=== PATIENT | male | born 1960 | race Caucasian/White ===

== ENCOUNTER 2017-03-21 05:54 | Emergency (ER) | payer BC, OTHER ==
[~2017-03-21] VITALS: Ht 175.3 cm; Wt 96.3 kg
[~2017-03-21 05:54] MED LIST: MULT-190 PO
[2017-03-21 05:58] VITALS: TEMP 36.8; Ht 175.3 cm; Wt 96.3 kg
[2017-03-21] MEDS ORDERED: PROPARACAINE HCL 0.5% OP SOLN 15 ML BTL ONE (06:22)
--- NOTE | 2017-03-21 06:30 | EMERGENCY ROOM VISIT NOTE ---
History Report prepared by Sabino: Diane Pederson Under the Supervision of: Dr. Betty Coelho D.O. First contact with patient: 06:07 Chief Complaint: OTHER COMPLAINT Stated Complaint: SWOLLEN EYES, EAR/HEAD PAIN History of Present Illness The patient is a 56 year old male who presents to the Emergency Room with complaints of constant eye swelling beginning this morning. The patient states that a few days ago he felt like he had an eyebrow hair hair that was out of place but nothing was wrong. He reports that the next day he noticed a sensitive spot behind his ear that was not from any cause that he could find. Over the next days he has noticed more sensitive spots on the top of his head and yesterday developed a red line on the front of his forehead. The patient complains of sensitive spots on his head, a line on his forehead that feels like a large zit, and a swollen eye. He denies any ear pain and history of getting a shingles shot. Source of History: patient Onset: this morning Position: eye (right) Quality: other (swelling) Timing: constant Note: The patient complains of sensitive spots on his head and a zit-feeling line on his forehead. He denies any ear pain. Review of Systems See HPI for pertinent positives & negatives. A total of 10 systems reviewed and were otherwise negative. Past Medical & Surgical Medical Problems: (1) No Known Active Medical Problems Family History No pertinent family history stated. Social History Smoking Status: Never Smoker Marital Status: Housing Status: lives with significant other Occupation Status: employed Current/Historical Medications Scheduled Valacyclovir Hcl (Valtrex), 1 TAB PO TID Scheduled PRN Oxycodone/Acetaminophen 5MG/325MG (Percocet 5MG/325MG), 1-2 TABLETS PO Q4H PRN for Pain Allergies Coded Allergies: Penicillins (Verified Allergy, Unknown, hives, 03/21/17) Physical Exam Vital Signs Date Time Temp Pulse Resp B/P Pulse Ox O2 Delivery O2 Flow Rate FiO2 03/21/17 06:55 86 18 128/88 94 Room Air 03/21/17 06:06 98 03/21/17 05:58 36.8 91 18 135/73 95 Room Air Physical Exam HEENT: Head - Vesicular lesions above the left eye extending up to the middle of the scalp. Pupils are equal, round, and reactive to light. Extraocular eye muscles are intact, and sclera are anicteric. Ear - Left TM was normal. No signs of herpetic lesions. Nose - moist nasal mucosa without discharge. There were no lesions to the tip of the nose. Mouth - moist buccal mucosa. Oropharynx is nonerythematous and there is no tonsillar exudate or edema noted. Neck: Supple; no JVD, nuchal rigidity, cervical lymphadenopathy, or auscultated bruits. Heart: Regular rate and rhythm. There is a normal S1 and S2 with no murmurs, clicks, or gallops appreciated. Lungs: Clear to auscultation bilaterally with no wheezes, rales, or rhonchi. Abdomen: Soft, completely nontender, nondistended, with good bowel sounds. There are no palpable pulsatile masses or hepatosplenomegaly. There is no guarding, rigidity, or rebound noted. Extremities: No evidence of cyanosis, clubbing, or edema. There are easily palpable peripheral pulses. Skin: warm and dry with good turgor and no rashes. Slit Lamp Exam: Negative. See procedure note. Medical Decision & Procedures Medications Administered Medications (Trade) Dose Ordered Sig/Blair Route Start Time Stop Time Status Last Admin Dose Admin Proparacaine HCl (Alcaine 0.5% Oph Soln) 225 drops STK-MED ONCE .ROUTE 03/21/17 06:22 03/21/17 06:23 DC 03/21/17 06:18 225 DROPS Valacyclovir HCl (Valtrex Tab) 1,000 mg NOW ONCE PO 03/21/17 06:45 03/21/17 06:46 DC 03/21/17 06:48 1,000 MG Oxycodone/ Acetaminophen (Percocet 5/ 325MG Home Pack) 1 homepack UD ONCE PO 03/21/17 06:45 03/21/17 06:46 DC 03/21/17 06:47 1 HOMEPACK Dexamethasone (Decadron 0.1% Op Soln) 1 drops UD STAT OPL 03/21/17 06:37 03/21/17 06:41 DC 03/21/17 07:03 1 DROPS Procedure Slit Lamp Examination Indication: Rule out Herpes Ophthalmicus The left eye was prepped with topical proparacaine. Slit lamp examination was performed in the standard fashion. Cornea appeared clear. Anterior chamber quiet. Scleral injection minimal. No discharge present. Fluorescein examination performed and revealed no dendritic lesions. No foreign bodies noted. Negative Sophie sign. The patient tolerated the procedure well without complication. 0637: Dexamethasone 1 drop OPL. 0645: Oxycodone/Acetaminophen 1 homepack PO, Valtrex Tab 1000mg PO. ED Course 0607: Past medical records reviewed. The patient was evaluated in room B2. A complete history and physical exam was performed. 0632: A slit lamp examination was performed. 0637: Dexamethasone 1 drop OPL. 0645: Oxycodone/Acetaminophen 1 homepack PO, Valtrex Tab 1000mg PO. 0648: I reevaluated and updated the patient. 0659: Upon reevaluation, the patient is doing well. I discussed treatment plan with him. He verbalized agreement of the treatment plan. The patient was discharged home. Medical Decision The patient is a 56 year old male who presents to the ED with eye swelling. Differential diagnosis includes orbital cellulitis, periorbital cellulitis, zoster ophthalmicus, herpes zoster. This is a 56-year-old male patient presents to the emergency department with lesions to the left side of his head and above the left eye. His examination is consistent with herpes zoster. The patient was started on Valtrex for the next 7 days. He was given Percocet to use for pain. A thorough eye exam was performed. There were no dendritic lesions noted on exam, however I was concerned about the possibility of herpes ophthalmicus and we'll start the patient on dexamethasone eyedrops to the left eye. He was warned that if he developed any symptoms to the left eye, he should return to the emergency department immediately. Impression Primary Impression: Herpes zoster virus infection of face and ear nerves Scribe Attestation The scribe's documentation has been prepared under my direction and personally reviewed by me in its entirety. I confirm that the note above accurately reflects all work, treatment, procedures, and medical decision making performed by me. Departure Information Dispostion Home / Self-Care Prescriptions Oxycodone/Acetaminophen 5MG/325MG (PERCOCET 5MG/325MG) Tab 1-2 TABLETS PO Q4H Y for Pain, #20 TAB Prov: Betty Coelho D.O. 03/21/17 Valacyclovir Hcl (VALTREX) 1 Gm Tab 1 TAB PO TID for 7 Days, #21 TAB Prov: Betty Coelho D.O. 03/21/17 Referrals Erik Arevalo M.D. (PCP) Forms HOME CARE DOCUMENTATION FORM, IMPORTANT VISIT INFORMATION, WORK / SCHOOL INSTRUCTIONS Patient Instructions [facility], Shingles Herpes Zoster Additional Instructions Rest. Valtrex - 1 tab. every 8 hours for a week Percocet - 1 -2 tabs. every 6 hours for pain Steroid eye drops - 1 drop to the left eye every hour while awake. You must return to the ER immediately if you feel any eye involvement Avoid immunocomprimised individuals
[2017-03-21] MEDS ORDERED: DEXAMETHASONE 0.1% OP SOLN 5 ML BTL OPL STA (06:37)
[2017-03-21] MEDS ORDERED: PERCOCET HOME PACK PO ONE (06:45)
[2017-03-21 06:55] VITALS: BP 128/88; PULSE 86; O2SAT 94
[2017-03-21] MEDS ORDERED: OXYC-57 PO (06:57)
[2017-03-21] MEDS ORDERED: VALA1TAB31 PO (06:57)
== END 2017-03-21 07:08 | disposition home or self-care (01) ==
LOC: C.EDB 05:55
DX: B02.9 Zoster without complications (principal)

== ENCOUNTER → 2017-11-23 | Outpatient (CLI) | payer OTHER ==
--- NOTE | 2017-11-23 12:08 | DIAGNOSTIC IMAGING REPORT ---
CHEST 2 VIEWS ROUTINE CLINICAL HISTORY: R05 [id number] COMPARISON STUDY: No previous studies for comparison. FINDINGS: The bones soft tissues and hemidiaphragms are normal. The cardiomediastinal silhouette is normal. The lungs are clear. The pulmonary vasculature is normal. IMPRESSION: Negative chest. The above report was generated using voice recognition software. It may contain grammatical, syntax or spelling errors. Electronically signed by: Noe Gutierrez M.D. 11/23/2017 12:06 PM Dictated Date/Time: 11/23/2017 12:06 PM
[2017-11-23 13:26] LABS: ALT/SGPT 45 U/L (12-78); BLOOD UREA NITROGEN 10 mg/dl (7-18); BUN/CREATININE RATIO 14.6 (10-20); CALCIUM 8.5 mg/dl (8.5-10.1); CARBON DIOXIDE 28 mmol/L (21-32); CHLORIDE 106 mmol/L (98-107); CHOLESTEROL 117 mg/dl (0-200); CREATININE 0.71 mg/dl (0.60-1.40); GLUCOSE 80 mg/dl (70-99); POTASSIUM 3.7 mmol/L (3.5-5.1); SODIUM 140 mmol/L (136-145); TRIGLYCERIDES 52 mg/dl (0-150); VERY LOW DENSITY LIPOPROT CALC 10 mg/dl
[2017-11-23 13:37] LABS: ALB/GLOB RATIO 1.1 (0.9-2); ALKALINE PHOSPHATASE 68 U/L (45-117); AST/SGOT 19 U/L (15-37); CHOLESTEROL/HDL RATIO 2.8; HDL CHOLESTEROL 42 mg/dl; LDL CHOLESTEROL CALCULATED 65 mg/dl
== END | disposition home or self-care (01) ==
LOC: C.RADBC 11:08
PROVIDERS: ATTEND Physician Assistant Medical
DX: Z00.00 Encounter for general adult medical examination without abnormal findings (principal); R68.89 Other general symptoms and signs; R05 Cough

== ENCOUNTER → 2017-12-20 | Outpatient (CLI) | payer OTHER | END | disposition home or self-care (01) | LOC: C.CPL 07:20 | PROVIDERS: ATTEND Surgery | DX: Z01.810 Encounter for preprocedural cardiovascular examination (principal); K42.9 Umbilical hernia without obstruction or gangrene ==

== ENCOUNTER → 2017-12-24 | Day surgery (SDC) | payer OTHER ==
[2017-12-20 11:07] VITALS: Ht 177.8 cm; Wt 90.9 kg
[~2017-12-24] VITALS: Ht 177.8 cm; Wt 90.9 kg
[~2017-12-24] MED LIST changes: +ATROPINE SULFATE 0.1 MG/ML 5ML SYR IV PRN; +CLINDAMYCIN 900MG IV SCH; +CLINDAMYCIN IV 900 MG in DEXTROSE 5% 50ML 44 ML IV SCH; +CLINDAMYCIN PHOS 150 MG/ML 2 ML VIAL IV SCH; +DEXAMETHASONE SOD INJ 4 MG/ML VIAL IV PRN; +EpHEDrine SULFATE INJ 50 MG/ML AMP IV PRN; +FENTANYL CITRATE INJ 50 MCG/1 ML 2 ML VIAL IV PRN; +FENTANYL CITRATE INJ 50 MCG/1 ML 2 ML VIAL ONE; +KETOROLAC TROMETHAMINE 30 MG/ML VIAL IV. PRN; +LABETALOL HCL IV 5 MG/ML 20ML IV PRN; +LACTATED RINGER'S 1000ML 1,000 ML IV SCH; +LIDOCAINE HCL 2% 2 ML VIAL (20MG/ML) ONE; +METOCLOPRAMIDE HCL INJ 5 MG/ML 2 ML VIAL IV PRN; +MIDAZOLAM HCL 1 MG/ML 2ML VIAL ONE; -MULT-190 PO; +MoRPHine SULFATE 10 MG/ML CARP/VIAL IV PRN; +MoRPHine SULFATE 2 MG/ML CARP IV PRN; +MoRPHine SULFATE 4 MG/ML 1 ML CARP\\VIAL IV PRN; +ONDANSETRON INJ 2 MG/ML 2 ML VIAL IV PRN; +ONDANSETRON INJ 2 MG/ML 2 ML VIAL ONE; +OXYC-57 PO; +OXYCODONE/ACETAMINOPHEN 5-325 TAB PO PRN; +PHENYLEPHRINE 100MCG/ML 5ML SYR IV PRN; +PHENYLEPHRINE HCL INJ 10 MG/ML VIAL ONE; +PROPOFOL IV EMULSION 10 MG/ML 20 ML VIAL IV ONE; +SODIUM CHLORIDE 0.9% 1000ML 1,000 ML IV SCH
[2017-12-24] MEDS: BUPIVACAINE 0.5 % 5 MG/1 ML MPF 30ML VIAL ONE ×2 (06:31→08:55)
--- NOTE | 2017-12-24 08:10 | History & Physical Bridge - SC ---
H&P Re-Evaluation Bridge Note: I have examined the patient, reviewed the History & Physical and in the interval since the performance of the History & Physical I have noted the following changes of clinical significance: No changes noted
--- NOTE | 2017-12-24 08:59 | [facility] Post Operative Brief Note ---
Immediate Operative Summary Operative Date Dec 24, 2017. Pre-Operative Diagnosis Umbilical Hernia Post-Operative Diagnosis incarcerated umbilical hernia Procedure(s) Performed Umbilical Hernia Open Repair with Mesh Surgeon Dr. Escobar Hvac/R Instructor Surgeon(s) Baltazar Berrios PA-C Estimated Blood Loss 3ml Findings Consistent with Post-Op Diagnosis 2.5cm defect, incarcerated fat reduced, 4.3cm cqur placed Specimens None Drains None Anesthesia Type General Complication(s) none Disposition Accompanied Pt To Recover: no Disposition: Recovery Room / PACU
--- NOTE | 2017-12-24 09:04 | Discharge Instructions-SurgCtr ---
Discharge Instructions Date of Service Dec 24, 2017. Visit Reason for Visit: Umbilical Hernia Discharge Discharge Diagnosis / Problem: incarcerated umbilical hernia Discharge Goals Goal(s): Decrease discomfort Activity Recommendations Activity Limitations: per Instructions/Follow-up section Lifting Limitations: no more than 25 pounds Driving or Machine Use: resume 3 days after discharge Anesthesia . Post Anesthesia Instructions: If you have had General Anesthesia or IV Sedation: * Do not drive today. * Resume driving when surgeon permits. * Do not make important decisions or sign legal documents today. * Call surgeon for: 1. Temperature elevations greater than 101 degrees F. 2. Uncontrollable pain. 3. Excessive bleeding. 4. Persistent nausea and vomiting. 5. Medication intolerance (nausea, vomiting or rash). * For nausea and vomiting use only clear liquids such as: tea, soda, bouillon until nausea subsides, then gradually increase diet as tolerated. * If you have any concerns or questions, call your surgeon's office. If physician is unavailable and it is an emergency, call 911 or go to the nearest emergency room. . Instructions / Follow-Up Instructions / Follow-Up Post-Operative Instructions After Hernia Repair 1. The patient may resume a regular diet as soon as tolerated. Small frequent meals, to begin with may be tolerated easier in the early post-operative stage. Increase at your own pace. No diet restrictions apply related to a hernia(s) repair. 2. The patient may experience either constipation or diarrhea after surgery and this may be caused by anesthesia, pain medications or reaction to surgery. This is not uncommon. The patient may take any over the counter medication(s) that have worked previously to correct the situation of diarrhea or constipation. Suggestions are: Milk of Magnesia, Dulcolax tablets or suppositories as directed for constipation. Also increasing fluids such as water, juices, etc. will help with elimination. Suggestions for diarrhea include Pepto-Bismol and Imodium AD as directed for diarrhea. Also drinking Gatorade and BRAT diet (bananas, rice, applesauce, toast) may help to alleviate and correct some of the side effects of diarrhea. 3. The patient may shower 24 hours after surgery. The patient may remove the dressing at this time. The dressing may be replaced if the patient desires or left off. This is strictly the choice of the patient. Some patients may not have a dressing at all but some glue instead. Suggestion: Some patients state a light dressing to the to the incisional area(s) (which may drain) is more comfortable if the clothing at incision site(s) rubs or irritates. If the patient observes Steri-Strips (small strips of textured adhesive tape) at incisions or over sutures please leave intact. The patient may get them wet in the shower and pat dry. The sutures (if the patient has sutures) should be left intact. 4. The patient needs to call the office for a post-operative appointment, if one is not already made at . The patient will need to be seen in the office 1-2 weeks after the surgery date. Please call ahead for appointment. At the time of post-operative office visit, physical activity/work release will be discussed and release forms given. 5. The patient may resume activity slowly. The patient may no t engage in strenuous activity or heavy lifting until cleared by physician, which can be discussed at post-operative appointment. However, the patient should listen to their body in response to certain activities. Gradually increase activities at a comfortable, individual pace. There are no restrictions regarding stairs, however the patient should be cautious initially and advance slowly. 6. The patient may resume driving when not taking pain medication, which may impair judgment and response during driving. The patient should also feel capable of having physical strength and capability to respond quickly to any situation that may occur while driving. 7. The patient may use ice to incisional sites post-operatively to decrease pain and/or swelling days 1 to 3. It is not at all uncommon for patient to have swelling and bruising at incision(s), which may extend to genital areas. This problem may be decreased by placing a rolled hand towel under the scrotum which will elevate the genital area to assist with decreasing the swelling. This is to be utilized while in bed or up in a chair. While patient is up and walking around, an athletic supporter is recommended to help with any swelling and to give support to swollen area for comfort. 8. The patient may experience some drainage from the incisions, which is not uncommon. If patient experiences a small amount of bloody drainage, ice to the area should alleviate this. Any other drainage may be due to normal body response which a light dressing can be applied and changed as needed. The patient may also experience slight redness at incision ends where a suture may be noted. These areas can be cleaned a few times per day with hydrogen Peroxide and a Q-Tip. Bruising at these sites is not uncommon. 9. Please contact the office should you develop any problems such as prolonged nausea/vomiting, temperature elevations above 101.5 or other difficulties. Diet Recommendations Home Diet: resume previous diet Procedures Procedures Performed: Umbilical Hernia Open Repair with Mesh Pending Studies Studies pending at discharge: no Medical Emergencies . Who to Call and When: Medical Emergencies: If at any time you feel your situation is an emergency, please call 911 immediately. . Non-Emergent Contact Non-Emergency issues call your: Surgeon . . "Provider Documentation" section prepared by Catrachito Escobar. .
--- NOTE | 2017-12-24 09:21 | [facility] Operative Report ---
Operative Report Operative Date Dec 24, 2017. Pre-Operative Diagnosis Umbilical Hernia Post-Operative Diagnosis incarcerated umbilical hernia Procedure(s) Performed Umbilical Hernia Open Repair with Mesh Surgeon Dr. Escobar Dial Lathe Operator Surgeon(s) Baltazar Berrios PA-C Estimated Blood Loss 3ml Findings 2.5cm defect, incarcerated fat reduced, 4.3cm cqur placed Specimens None Drains none Anesthesia General Complication(s) None Disposition Recovery Room / PACU Indications 57-year-old male with symptomatic incarcerated umbilical hernia, plan for umbilical hernia repair. The risks of the procedure were discussed, all questions were answered, and the patient agreed to proceed with surgery as planned. Description of Procedure The patient was properly identified, consented, and taken to the operating room where he was placed in the supine position. General endotracheal anesthesia was induced. SCDs and a safety belt were placed. Preoperative antibiotics were administered. The patient's abdomen was prepped and draped in the standard sterile fashion. Surgical timeout was performed and all parties were in agreement that this was the correct patient and procedure to be performed and we continued as planned. A curvilinear infraumbilical incision was made and deepened down to the fascia with blunt dissection. The umbilical stalk was circumferentially dissected with a Eulalia, and divided below the level of the skin. A 2.5 cm fascial defect was encountered. The incarcerated fat containing hernia was reduced. The fascia anteriorly and posteriorly was cleared of investing tissue for several centimeters. Hemostasis was achieved within the wound. A 4.3 cm piece of Cqur mesh was sown into place with interrupted 0 Nurolon sutures. The wound was irrigated and hemostasis confirmed. The umbilicus was tacked down to the fascia with 3-0 Vicryl sutures. Local anesthetic in the form of 0.5% Marcaine was injected in the fascia and along the skin incision. The skin was closed with interrupted 3-0 Vicryl deep dermal sutures, followed by 4-0 Monocryl running subcuticular suture. Dermabond was placed over the wound. The patient was extubated in the operating room and taken to the PACU where he recovered without apparent incident. All sponge, instrument and needle counts were correct at the conclusion of the procedure. The patient tolerated the procedure well. The physician's commercial lending assistant was present and scrubbed for the entirety of the case. He was essential in positioning the patient, prepping and draping, retraction and exposure, placement of the mesh, and closure. I attest to the content of the Intraoperative Record and any orders documented therein. Any exceptions are noted below.
[2017-12-24 10:08] VITALS: TEMP 36.2
--- NOTE | 2017-12-24 10:37 | Anesthesia Progress Nt - [facility] ---
Anesthesia Post Op Note Date & Time Dec 24, 2017 at 10:36 Vital Signs Pain Intensity: 5.0 Vital Signs Past 12 Hours Date Time Temp Pulse Resp B/P (MAP) Pulse Ox O2 Delivery O2 Flow Rate FiO2 12/24/17 10:08 36.2 62 18 113/66 (82) 96 Room Air 12/24/17 10:02 68 20 96 12/24/17 10:02 68 20 12/24/17 10:01 117/74 12/24/17 09:57 72 13 12/24/17 09:57 72 13 93 12/24/17 09:56 114/86 12/24/17 09:56 36.9 76 16 114/86 96 Room Air 12/24/17 09:52 72 19 96 12/24/17 09:52 72 19 12/24/17 09:51 113/82 12/24/17 09:47 72 20 12/24/17 09:47 72 20 100 12/24/17 09:46 126/78 12/24/17 09:42 68 17 12/24/17 09:42 68 17 98 12/24/17 09:41 118/76 12/24/17 09:39 74 18 91 12/24/17 09:39 73 18 12/24/17 09:36 111/74 12/24/17 09:34 68 14 12/24/17 09:34 69 14 95 12/24/17 09:31 110/67 12/24/17 09:29 65 15 12/24/17 09:29 64 15 97 12/24/17 09:26 113/77 12/24/17 09:24 74 17 12/24/17 09:24 75 17 96 12/24/17 09:21 110/75 12/24/17 09:19 78 17 12/24/17 09:19 78 17 97 12/24/17 09:16 111/77 12/24/17 09:14 71 17 95 12/24/17 09:14 71 17 12/24/17 09:11 124/84 12/24/17 09:10 114/87 12/24/17 09:09 36.5 76 16 114/87 95 Diffusion Mask 6 12/24/17 06:59 36.5 79 18 125/81 (96) 95 Room Air Notes Mental Status: alert / awake / arousable, participated in evaluation Pt Amnestic to Procedure: Yes Nausea / Vomiting: adequately controlled Pain: adequately controlled Airway Patency, RR, SpO2: stable & adequate BP & HR: stable & adequate Hydration State: stable & adequate Anesthetic Complications: no major complications apparent
[2017-12-24 10:41] VITALS: BP 112/75; PULSE 64; O2SAT 95
== END | disposition home or self-care (01) ==
LOC: X.SURG 06:52
PROVIDERS: ATTEND Surgery
DX: K42.0 Umbilical hernia with obstruction, without gangrene (principal); Z88.0 Allergy status to penicillin; Z98.890 Other specified postprocedural states; Z80.42 Family history of malignant neoplasm of prostate; Z82.3 Family history of stroke